=== PATIENT | male | born 1985 | race Hispanic/Latino ===

== ENCOUNTER 2017-11-16 16:50 | Emergency (ER) | payer SELFPAY ==
[2017-11-16] MEDS ORDERED: Acetaminophen 500 MG TAB ONE (17:02)
== END 2017-11-16 18:15 | disposition home or self-care (01) ==
LOC: NAV ERS 16:50
DX: J10.1 Influenza due to other identified influenza virus with other respiratory manifestations (principal); J45.909 Unspecified asthma, uncomplicated; F41.9 Anxiety disorder, unspecified; F17.200 Nicotine dependence, unspecified, uncomplicated; Z79.51 Long term (current) use of inhaled steroids; Z71.6 Tobacco abuse counseling
CPT/HCPCS: 99406